=== PATIENT | male | born 1950 | race Caucasian/White ===

== ENCOUNTER 2018-01-31 18:59 | Observation (INO) | payer OTHER ==
[~2018-01-31] VITALS: Ht 177.8 cm; Wt 92.5 kg
[~2018-01-31 18:59] MED LIST: AUGMENTIN500 MG PO; CALAN SR,COVER120 M1 PO; COREG6.25 MG PO; COUMADIN,JANTOVE6 MG PO; DIOVAN160 MG PO; GLUCOPHAGE500 MG PO; IRON325 M1 PO; JANTOVEN6 M1 PO; LASIX40 MG PO; LOVENOX100 MG/1 M SC; LUMIGAN; LUMIGAN 0.50 DROP/2. BOTH EYES; MITRAZOL POWDER30 GM TP; PREVACID30 MG PO; REGLAN10 MG PO; VERAPAMIL HCL120 MG PO
[2018-01-31 19:48] LABS: BASOPHIL (%) 0.4 % (0-1); EOSINOPHIL (%) 3.3 % (0-5); EOSINOPHIL COUNT 0.2 K/uL (0-0.3); HEMATOCRIT 35.9 % (38.0-50.0); HEMOGLOBIN 12.2 G/DL (12.5-16.6); IMMATURE GRANULOCYTE (%) 0.2 % (0.0-0.7); LYMPHOCYTE (%) 28.1 % (15-42); LYMPHOCYTE COUNT 1.5 K/uL (1.0-2.8); MCH 27.4 PG (29.0-34.0); MCV 80.7 FL (86-99); MONOCYTE (%) 11.7 % (3-12); MONOCYTE COUNT 0.6 K/uL (0-0.8); NEUTROPHIL (%) 56.3 % (45-76); PLATELET COUNT 248 K/uL (156-360); RBC DIS.WIDTH-CV 12.6 % (11.8-14.6); RBC DIS.WIDTH-SD 36.7 % (39-53); RED BLOOD COUNT 4.45 M/uL (4.00-5.50); WHITE BLOOD COUNT 5.4 K/uL (4.1-10.2)
[2018-01-31 19:58] LABS: INTER. NORMALIZED RATIO 3.3
[2018-01-31 20:01] LABS: CHLORIDE 95 mEq/L (99-109); POTASSIUM 4.8 mEq/L (3.7-5.4); PTT 38.9 SEC (25-37); SODIUM 128 mEq/L (136-147)
[2018-01-31 20:03] LABS: GLUCOSE 108 mg/dL (70-99)
[2018-01-31 20:07] LABS: GFR ESTIMATE (CALCULATED) > 59 mL/min/ (58.99-99999)
[2018-01-31 20:08] LABS: UREA NITROGEN (BUN) 13 mg/dL (9-23)
[2018-01-31 20:18] LABS: TROP-I INTERPRETATION NEGATIVE; TROPONIN-I 0.02 ng/mL (0.0-0.30)
[2018-01-31 20:51] LABS: HDL CHOLESTEROL 37 MG/DL (Desirable>=40); LDL CHOLESTEROL 61 mg/dL (Desirable<100); NON-HDL CHOLESTEROL 76 mg/dL (Desirable<160); TOTAL CHOLESTEROL 113 mg/dL (Desirable<200); TRIGLYCERIDES 77 MG/DL (Normal: <150)
[2018-01-31] MEDS ORDERED: JANTOVEN3 MG PO (22:08)
[2018-01-31] MEDS ORDERED: METOCLOPRAMIDE10 MG PO (22:11)
[2018-01-31] MEDS ORDERED: CARVEDILOL6.25 MG PO (22:12)
[2018-01-31] MEDS ORDERED: VERAPAMIL HCL120 MG PO (22:14)
[2018-01-31] MEDS ORDERED: RANITIDINE HCL150 MG PO (22:14)
[2018-01-31] MEDS ORDERED: LOSARTAN POTAS100 MG PO (22:15)
[2018-01-31] MEDS ORDERED: LANSOPRAZOLE30 MG PO (22:16)
[2018-01-31] MEDS ORDERED: VITAMIN D31000 UNI2 PO (22:17)
[2018-01-31 23:33] VITALS: BP 168/90
[2018-02-01 03:38] VITALS: BP 143/77
[2018-02-01 08:00] VITALS: BP 138/80
[2018-02-01 10:19] LABS: HEMOGLOBIN A1c (GLYCOHEMOGLOB) 5.6 % (Below 5.7)
[2018-02-01 10:41] LABS: INTER. NORMALIZED RATIO 3.2
[2018-02-01 11:13] VITALS: BP 120/64
[2018-02-01 11:19] LABS: APPEARANCE CLEAR ((CLEAR)); BILIRUBIN NEGATIVE; BLOOD NEGATIVE; COLOR STRAW ((YELLOW)); GLUCOSE (STRIP) NEGATIVE; KETONES NEGATIVE; LEUKOCYTES NEGATIVE; NITRITE NEGATIVE; PROTEIN (STRIP) NEGATIVE; SPECIFIC GRAVITY 1.015 (1.000-1.030); UCUL ADDED? NO; UROBILINOGEN 0.2 MG/DL (0.2-1.0)
== END 2018-02-01 12:55 | disposition home or self-care (01) ==
LOC: EME 18:59 → EDOF 22:06 → 5WEST 22:06 → ENRESERV 22:08 → 5WEST 23:28 → ENPENDDIS 02-01 12:15 → 5WEST 02-01 12:55
PROVIDERS: Emergency Medicine; Hospitalist; Nurse Practitioner Family
DX: G45.9 Transient cerebral ischemic attack, unspecified (principal); R47.02 Dysphasia; R25.1 Tremor, unspecified; I11.0 Hypertensive heart disease with heart failure; I50.9 Heart failure, unspecified; E87.1 Hypo-osmolality and hyponatremia; I27.20 Pulmonary hypertension, unspecified; J44.9 Chronic obstructive pulmonary disease, unspecified; E11.9 Type 2 diabetes mellitus without complications; E78.5 Hyperlipidemia, unspecified; K21.9 Gastro-esophageal reflux disease without esophagitis; Z79.01 Long term (current) use of anticoagulants; Z79.82 Long term (current) use of aspirin; Z86.711 Personal history of pulmonary embolism
CPT/HCPCS: 70496; 70498; 70551; 80048; 80061; 81003; 83036; 84484; 85025; 85610; 85730; 93005; 93306; 99281; 99285; G0378; J7030

== ENCOUNTER 2018-02-07 11:00 | Emergency (ER) | payer OTHER ==
[~2018-02-07] VITALS: Ht 177.8 cm; Wt 90.7 kg
[~2018-02-07 11:00] MED LIST changes: +CARVEDILOL6.25 MG PO; +JANTOVEN3 MG PO; +LANSOPRAZOLE30 MG PO; +LOSARTAN POTAS100 MG PO; +METOCLOPRAMIDE10 MG PO; +RANITIDINE HCL150 MG PO; +VITAMIN D31000 UNI2 PO
[2018-02-07 12:01] LABS: HEMATOCRIT 33.5 % (38.0-50.0); HEMOGLOBIN 11.6 G/DL (12.5-16.6); MCH 27.8 PG (29.0-34.0); MCHC 34.6 G/DL (30.0-36.0); MCV 80.1 FL (86-99); PLATELET COUNT 224 K/uL (156-360); RBC DIS.WIDTH-CV 12.6 % (11.8-14.6); RBC DIS.WIDTH-SD 36.7 % (39-53); RED BLOOD COUNT 4.18 M/uL (4.00-5.50); WHITE BLOOD COUNT 4.4 K/uL (4.1-10.2)
[2018-02-07 12:13] LABS: ALBUMIN 3.7 g/dL (3.2-4.8); CHLORIDE 93 mEq/L (99-109); POTASSIUM 3.9 mEq/L (3.7-5.4); SODIUM 124 mEq/L (136-147)
[2018-02-07 12:16] LABS: GLUCOSE 119 mg/dL (70-99); TOTAL PROTEIN 6.9 g/dL (6.4-8.3)
[2018-02-07 12:18] LABS: TOTAL BILIRUBIN 0.5 mg/dL (0.0-1.0)
[2018-02-07 12:19] LABS: ALKALINE PHOSPHATASE 89 IU/L (3-129); GFR ESTIMATE (CALCULATED) > 59 mL/min/ (58.99-99999)
[2018-02-07 12:20] LABS: UREA NITROGEN (BUN) 13 mg/dL (9-23)
[2018-02-07 12:21] LABS: AST (GOT) 18 IU/L (2-34)
[2018-02-07 12:22] LABS: ALT (GPT) 16 IU/L (3-49)
[2018-02-07] MEDS ORDERED: TESSALON200 MG PO (12:37)
[2018-02-07] MEDS ORDERED: VENTOLIN HFA18 GM IH (12:37)
[2018-02-07 12:44] VITALS: BP 130/55
== END 2018-02-07 12:46 | disposition home or self-care (01) ==
LOC: EME 11:00
PROVIDERS: Nurse Practitioner Family
DX: J06.9 Acute upper respiratory infection, unspecified (principal); J44.9 Chronic obstructive pulmonary disease, unspecified; I10 Essential (primary) hypertension; E11.9 Type 2 diabetes mellitus without complications
CPT/HCPCS: 71046; 80053; 85027; 99281; 99284